=== PATIENT | male | born 1990 | race Caucasian/White ===

== ENCOUNTER 2022-07-16 22:00 | Emergency (ER) | payer OTHER ==
[2022-07-16] MEDS ORDERED: Acetaminophen/HYDROcodone 325-10 MG Tab PO ONE (22:25)
[2022-07-16] MEDS ORDERED: Ondansetron 4 MG Tab.DIS PO ONE (22:28)
[2022-07-16 23:08] VITALS: BP 133/79; PULSE 78
== END 2022-07-16 23:07 | disposition home or self-care (01) ==
LOC: MW.ED 22:00
DX: B02.21 Postherpetic geniculate ganglionitis (principal); Z79.899 Other long term (current) drug therapy
CPT/HCPCS: 99282; A9270; 99283

== ENCOUNTER 2022-07-18 13:32 | Emergency (ER) | payer OTHER ==
[2022-07-18] MEDS ORDERED: Sodium Chloride 0.9% 1,000 ML IV SCH (14:15)
[2022-07-18 14:49] LABS: CARBON DIOXIDE,CO2 32.2 mmol/L (21.0-32.0); POTASSIUM,K 3.7 mmol/L (3.5-5.1)
[2022-07-18] MEDS ORDERED: Dextrose 5%-0.45% NaCl 1,000 ML IV SCH (15:45)
[2022-07-18 18:03] VITALS: BP 134/81; PULSE 80
== END 2022-07-18 18:03 | disposition home or self-care (01) ==
LOC: MW.ED 13:32
DX: E86.0 Dehydration (principal); R53.81 Other malaise; Z88.5 Allergy status to narcotic agent
CPT/HCPCS: 36415; 80048; 85025; 96360; 96361; 99283; J7030; J7042